=== PATIENT | female | born 1955 | race Caucasian/White ===

== ENCOUNTER 2023-04-05 09:43 | Day surgery (SDC) | payer OTHER, BC ==
[2023-04-03 14:54] VITALS: BMI 30.2
[2023-04-05 10:10] VITALS: TEMP 98
[2023-04-05 13:12] VITALS: RESP 18
[2023-04-05 13:14] VITALS: BP 107/73; PULSE 69
== END 2023-04-05 13:00 | disposition home or self-care (01) ==
LOC: FASU-ENDO 09:43
PROVIDERS: ATTEND Internal Medicine
PROC: 0DJD8ZZ Inspection of Lower Intestinal Tract, Via Natural or Artificial Opening Endoscopic (ICD-10-PCS; principal; 2023-04-05 11:58)
DX: Z12.11 Encounter for screening for malignant neoplasm of colon (principal); Z86.010 Personal history of colon polyps; K57.30 Diverticulosis of large intestine without perforation or abscess without bleeding; K64.8 Other hemorrhoids